=== PATIENT | female | born 1935 | race Hispanic/Latino ===

== ENCOUNTER → 2017-07-31 | Outpatient (CLI) | payer MEDICARE ==
[~2017-07-31] MED LIST: ALBU8.5H8 IH; ASPI-555 PO; ATOR40TA71 PO; CARV3.12 PO; FURO40TA5 PO; LEVO500T2 PO; LEVO50TA11 PO; LOSA25TA21 PO; OSEL75 PO; SPIR25TA PO; TICA90TA PO; VALA10002 PO
== END | disposition home or self-care (01) ==
LOC: SHCH 11:00
PROVIDERS: ATTEND Internal Medicine Cardiovascular Disease
DX: I50.22 Chronic systolic (congestive) heart failure (principal)
CPT/HCPCS: 93306

== ENCOUNTER 2017-09-07 09:26 | Observation (INO) | payer MEDICARE ==
[2017-09-06 13:24] VITALS: BP 127/66
[2017-09-06 13:26] LABS: BASOPHILS % (AUTO) 0.6 % (0.0-5.0); EOSINOPHILS % (AUTO) 2.7 % (0.0-8.0); HEMATOCRIT 35.9 % (36-48); LYMPHOCYTES % (AUTO) 21.8 % (21.0-51.0); MEAN CORPUSCULAR HEMOGLOBIN 30.3 pg (27.0-33.0); MEAN CORPUSCULAR HGB CONC 33.4 g/dL (32.0-36.0); MEAN CORPUSCULAR VOLUME 90.7 fL (79-99); MONOCYTES % (AUTO) 10.8 % (3.0-13.0); NEUTROPHILS % (AUTO) 64.1 % (40.0-77.0); PLATELET COUNT (AUTO) 253 K/uL (130-400); RED BLOOD CELL COUNT(AUTO) 3.96 MIL/uL (4.00-5.50); RED CELL DISTRIBUTION WIDTH 14.3 % (11.0-15.5); WHITE BLOOD COUNT (AUTO) 6.3 K/uL (4.8-10.8)
[2017-09-06 13:32] LABS: CREATININE 1.1 mg/dL (0.5-1.5); POTASSIUM 4.2 mmol/L (3.5-5.1)
[2017-09-06 13:47] LABS: INR 1.01 (0.85-1.15); PARTIAL THROMBOPLASTIN TIME 29.4 SEC (26.3-35.5); PROTHROMBIN TIME 10.6 SEC (9.6-11.6)
[2017-09-07] VITALS (11 sets, daily range): BP systolic 110–155; BP diastolic 59–82
[~2017-09-07] VITALS: Ht 142.2 cm; Wt 57.2 kg
[2017-09-07] MEDS: CEFAZOLIN SODIUM 1 GM VIAL IVP SCH (05:00)
[~2017-09-07 09:26] MED LIST changes: -ALBU8.5H8 IH; -ASPI-555 PO; -LEVO500T2 PO; -OSEL75 PO; -TICA90TA PO; -VALA10002 PO
[2017-09-07] MEDS ORDERED: BUPIVACAINE/PF 0.25% 30ML VIAL IJ ONE (09:55)
[2017-09-07] MEDS ORDERED: LIDOCAINE HCL 1% MDV 50ML VIAL ONE (09:55)
[2017-09-07] MEDS ORDERED: CEFAZOLIN 1GM / D5W 50ML 150 ML ONE (09:55)
[2017-09-07] MEDS ORDERED: ISOVUE-300 100 ML VIAL IV ONE (09:55)
[2017-09-07] MEDS ORDERED: MEPERIDINE-PF 50 MG/ML SYG ONE (10:05)
[2017-09-07] MEDS ORDERED: MIDAZOLAM HCL 1 MG/ML 2ML VIAL ONE ×2 (10:05→10:56)
[2017-09-07] MEDS ORDERED: ACETAMINOPHEN 325 MG TAB PO PRN (12:30)
[2017-09-07] MEDS ORDERED: ACETAMINOPHEN-CODEINE 300/30MG TAB PO PRN ×2 (12:30)
[2017-09-07] MEDS: CARVEDILOL 3.125 MG TABLET PO SCH (20:28)
[2017-09-07] MEDS ORDERED: LOSARTAN 50 MG TABLET PO SCH (21:00)
[2017-09-07] MEDS ORDERED: ATORVASTATIN CALCIUM 40 MG TABLET PO SCH (21:00)
[2017-09-07] MEDS ORDERED: POTASSIUM CHLORIDE 20 MEQ ERTAB PO PRN (23:15)
[2017-09-07] MEDS ORDERED: POTASSIUM CHLORIDE 20MEQ/100ML 100 ML IV PRN (23:15)
[2017-09-07] MEDS ORDERED: POTASSIUM CHLORIDE 10% ELIXIR 20 MEQ/15 ML UDCUP PO PRN (23:15)
[2017-09-07] MEDS ORDERED: LIDOCAINE HCL-MPF 1% 2ML VIAL IVP PRN (23:15)
[2017-09-08 03:24] VITALS: BP 125/78
[2017-09-08 04:02] LABS: HEMATOCRIT 34.3 % (36-48); MEAN CORPUSCULAR HEMOGLOBIN 31.4 pg (27.0-33.0); MEAN CORPUSCULAR HGB CONC 34.6 g/dL (32.0-36.0); MEAN CORPUSCULAR VOLUME 90.6 fL (79-99); NUCLEATED RED BLOOD CELLS 0.1 % (0.0-0.19); PLATELET COUNT (AUTO) 193 K/uL (130-400); RED BLOOD CELL COUNT(AUTO) 3.78 MIL/uL (4.00-5.50); RED CELL DISTRIBUTION WIDTH 13.9 % (11.0-15.5); WHITE BLOOD COUNT (AUTO) 7.7 K/uL (4.8-10.8)
[2017-09-08 04:10] LABS: CREATININE 1.1 mg/dL (0.5-1.5)
[2017-09-08] MEDS: CEFAZOLIN SODIUM 1 GM VIAL IVP SCH (05:00)
[2017-09-08] MEDS ORDERED: LEVOTHYROXINE 50 MCG TABLET PO SCH (07:30)
[2017-09-08 08:00] VITALS: BP 142/73
[2017-09-08] MEDS ORDERED: SPIRONOLACTONE 25 MG TAB PO SCH (09:00)
[2017-09-08] MEDS ORDERED: FUROSEMIDE 40 MG TABLET PO SCH (09:00)
[2017-09-08] MEDS ORDERED: FAMOTIDINE 20MG TAB 20 MG TAB PO SCH (09:00)
[2017-09-08] MEDS: CARVEDILOL 3.125 MG TABLET PO SCH (10:19)
[2017-09-08 12:26] VITALS: BP 122/74
== END 2017-09-08 13:15 | disposition home or self-care (01) ==
LOC: DAH 09:26 → UNDOADMOB 09:27 → DAH 09:27 → DAHIP 09:27 → 2AH 12:53 → DAHIP 12:53
PROVIDERS: ADMIT Family Medicine; ATTEND Internal Medicine Cardiovascular Disease
DX: I25.5 Ischemic cardiomyopathy (principal); I11.0 Hypertensive heart disease with heart failure; I50.9 Heart failure, unspecified; J47.9 Bronchiectasis, uncomplicated; J84.10 Pulmonary fibrosis, unspecified; J44.9 Chronic obstructive pulmonary disease, unspecified; E03.9 Hypothyroidism, unspecified; E78.5 Hyperlipidemia, unspecified; I25.10 Atherosclerotic heart disease of native coronary artery without angina pectoris; I25.2 Old myocardial infarction; Z95.0 Presence of cardiac pacemaker; Z95.5 Presence of coronary angioplasty implant and graft; Z95.810 Presence of automatic (implantable) cardiac defibrillator
CPT/HCPCS: 33249; 36415 ×2; 71045; 80048 ×2; 85025; 85027; 85610; 85730; 93005; A4218; C1721; C1895 ×2; G0378 ×25; J0690; J2175; J2250 ×2; J3490 ×2; 99152; 99153; Q9967

== ENCOUNTER 2017-09-18 15:42 | Observation (INO) | payer MEDICARE ==
[~2017-09-18] VITALS: Ht 152.4 cm; Wt 56.2 kg
[2017-09-18 16:46] LABS: BASOPHILS % (AUTO) 0.2 % (0.0-5.0); EOSINOPHILS % (AUTO) 0.4 % (0.0-8.0); HEMATOCRIT 36.7 % (36-48); LYMPHOCYTES % (AUTO) 12.8 % (21.0-51.0); MEAN CORPUSCULAR HGB CONC 34.6 g/dL (32.0-36.0); MEAN CORPUSCULAR VOLUME 89.6 fL (79-99); MONOCYTES % (AUTO) 19.4 % (3.0-13.0); NEUTROPHILS % (AUTO) 67.2 % (40.0-77.0); PLATELET COUNT (AUTO) 155 K/uL (130-400); RED BLOOD CELL COUNT(AUTO) 4.09 MIL/uL (4.00-5.50); RED CELL DISTRIBUTION WIDTH 13.8 % (11.0-15.5); WHITE BLOOD COUNT (AUTO) 10.9 K/uL (4.8-10.8)
[2017-09-18] MEDS ORDERED: SODIUM CHLORIDE 0.9% 500ML 500 ML IV ONE (16:59)
[2017-09-18 17:03] LABS: INR 1.06 (0.85-1.15); PARTIAL THROMBOPLASTIN TIME 29.9 SEC (26.3-35.5); PROTHROMBIN TIME 11.1 SEC (9.6-11.6)
[2017-09-18 17:05] LABS: CREATININE 1.7 mg/dL (0.5-1.5); POTASSIUM 4.3 mmol/L (3.5-5.1)
[2017-09-18 17:14] LABS: B-TYPE NATRIURETIC PEPTIDE 125 pg/mL (0-100)
[2017-09-18 17:19] LABS: ALBUMIN 3.4 g/dL (3.5-5.0); BILIRUBIN,TOTAL 0.5 mg/dL (0.2-1.0); CREATINE KINASE MB 4.4 ng/mL (0.5-3.6); TOTAL PROTEIN, SERUM 6.9 g/dL (6.0-8.3)
[2017-09-18] MEDS ORDERED: ASPIRIN 325 MG TABLET ONE (17:47)
[2017-09-18] MEDS ORDERED: ACYCLOVIR 800 MG TABLET PO SCH (20:00)
[2017-09-18] MEDS ORDERED: ACETAMINOPHEN 325 MG TAB PO PRN (20:00)
[2017-09-18] MEDS ORDERED: ONDANSETRON HCL 4 MG/2 ML VIAL IVP PRN (20:00)
[2017-09-19] MEDS ORDERED: ONDANSETRON HCL 4 MG/2 ML VIAL IV PRN
[2017-09-19] MEDS ORDERED: POTASSIUM CHLORIDE 10% ELIXIR 20 MEQ/15 ML UDCUP PO PRN
[2017-09-19] MEDS ORDERED: ACETAMINOPHEN 325 MG TAB PO PRN ×2
[2017-09-19] MEDS ORDERED: LIDOCAINE HCL-MPF 1% 2ML VIAL IVP PRN
[2017-09-19] MEDS ORDERED: POTASSIUM CHLORIDE 20MEQ/100ML 100 ML IV PRN
[2017-09-19] MEDS ORDERED: POTASSIUM CHLORIDE 20 MEQ ERTAB PO PRN
[2017-09-19 04:57] LABS: APPEARANCE,URINE Clear (CLEAR); BILIRUBIN,URINE Negative (NEGATIVE); COLOR,URINE Yellow (YELLOW); GLUCOSE, URINE (UA) Negative (NEGATIVE); KETONES,URINE Negative (NEGATIVE); LEUKOCYTE ESTERASE ,URINE Large (NEGATIVE); NITRATE,URINE Negative (NEGATIVE); OCCULT BLOOD,URINE Nonhemolyzed Trace (NEGATIVE); PROTEIN,URINE Negative (NEGATIVE); UROBILINOGEN,URINE 0.2 mg/dL (0.2-1.0)
[2017-09-19 05:11] LABS: BACTERIA,URINE Few /HPF (None Seen); MUCUS,URINE Moderate LPF (None Seen); RBC,URINE 0-1 /HPF (0-1); SQUAMOUS EPITHELIAL CELL,UR Few /LPF (0-2)
[2017-09-19 05:20] LABS: CREATININE 1.2 mg/dL (0.5-1.5); POTASSIUM 4.5 mmol/L (3.5-5.1)
[2017-09-19] MEDS ORDERED: OSELTAMIVIR PHOSPHATE 75 MG CAP ONE (07:59)
[2017-09-19] MEDS ORDERED: FAMOTIDINE/PF 20 MG/2 ML VIAL IV ONE (07:59)
[2017-09-19 08:40] VITALS: BP 115/72
[2017-09-19] MEDS: OSELTAMIVIR PHOSPHATE 75 MG CAP PO SCH ×2 (09:00→20:51)
[2017-09-19] MEDS: FAMOTIDINE 20MG TAB 20 MG TAB PO SCH ×2 (09:00→20:51)
[2017-09-19 15:20] VITALS: BP 91/60
[2017-09-19 19:12] VITALS: BP 99/67
[2017-09-19] MEDS ORDERED: ACYCLOVIR 800 MG TABLET PO ONE (21:00)
[2017-09-19 23:50] VITALS: BP 103/66
[2017-09-20 03:47] VITALS: BP 125/72
[2017-09-20] MEDS ORDERED: ACYCLOVIR 800 MG TABLET PO SCH (05:00)
[2017-09-20] MEDS: ACYCLOVIR 200 MG CAPSULE PO SCH ×2 (06:44→11:18)
[2017-09-20 07:24] VITALS: BP 123/73
[2017-09-20] MEDS: FAMOTIDINE 20MG TAB 20 MG TAB PO SCH (08:42)
[2017-09-20] MEDS: OSELTAMIVIR PHOSPHATE 75 MG CAP PO SCH (08:42)
[2017-09-20] MEDS ORDERED: OSEL75 PO (10:00)
[2017-09-20] MEDS ORDERED: VALA10002 PO (10:00)
[2017-09-20 11:26] VITALS: BP 118/78
== END 2017-09-20 13:45 | disposition home or self-care (01) ==
LOC: EDH 15:42 → EDHIP 17:46 → 2AH 09-19 15:12
PROVIDERS: ADMIT Internal Medicine; ATTEND Internal Medicine
DX: I95.9 Hypotension, unspecified (principal); B02.9 Zoster without complications; J10.1 Influenza due to other identified influenza virus with other respiratory manifestations; I11.0 Hypertensive heart disease with heart failure; I25.5 Ischemic cardiomyopathy; I50.22 Chronic systolic (congestive) heart failure; J44.9 Chronic obstructive pulmonary disease, unspecified; J47.9 Bronchiectasis, uncomplicated; J84.10 Pulmonary fibrosis, unspecified; E87.1 Hypo-osmolality and hyponatremia; E03.9 Hypothyroidism, unspecified; N28.9 Disorder of kidney and ureter, unspecified; Z95.810 Presence of automatic (implantable) cardiac defibrillator
CPT/HCPCS: 36415 ×2; 71045; 80048; 80053; 81001; 82550; 82553; 83874; 83880; 84484; 85025; 85610; 85730; 87088; 87804 ×2; 93005; 93306; 99285; G0378 ×44; J3490; J7040